=== PATIENT | male | born 1985 | race Asian ===

== ENCOUNTER 2020-11-03 06:34 | Emergency (ER) | payer OTHER ==
[2020-11-03 06:44] VITALS: BMI 23.6
[2020-11-03] MEDS ORDERED: ONDANSETRON 4 MG/2 ML VIAL IVPUSH ONE (06:53)
[2020-11-03] MEDS ORDERED: ONDANSETRON 4 MG/2 ML VIAL ONE (06:54)
[2020-11-03] MEDS ORDERED: SODIUM CHLORIDE 1,000 ML IV STA (07:26)
[2020-11-03] MEDS ORDERED: ACETAMINOPHEN 1000 MG/100 ML VIAL (NON FORMULARY) IVPB ONE (07:26)
[2020-11-03] MEDS ORDERED: ACETAMINOPHEN INJECTION 100 ML IVPB ONE (07:30)
[2020-11-03 07:47] LABS: BASO % 0.6 % (0-2.0); EOS % 3.3 % (0-4.5); HEMATOCRIT 47.1 % (35.4-49); HEMOGLOBIN 15.1 GM/dL (11.7-16.9); LYMPH % 44.1 % (8-40); MCH 27.5 pg (25.7-33.7); MCHC 32.1 g/dl (32.0-35.9); MEAN CELL VOLUME 85.6 fl (80-96); MEAN PLT VOLUME 10.5 fl (7.5-11.1); MONO % 7.8 % (3.8-10.2); NEUT % 44.2 % (42.8-82.8); PLATELET COUNT 228 K/MM3 (134-434); RDW 13.4 % (11.9-15.9); WHITE BLOOD COUNT 7.1 K/mm3 (4.0-10.0)
[2020-11-03 07:50] LABS: POTASSIUM 4.1 mmol/L (3.5-5.1)
[2020-11-03 07:53] LABS: ALBUMIN 4.2 g/dl (3.4-5.0); BLOOD UREA NITROGEN 17.8 mg/dL (7-18)
[2020-11-03 07:56] LABS: CREATININE 1.2 mg/dL (0.55-1.3)
[2020-11-03 07:58] LABS: BILIRUBIN,TOTAL 0.8 mg/dL (0.2-1); TOT PROT 7.5 g/dl (6.4-8.2)
[2020-11-03 09:41] LABS: EPI CELLS 7 /uL (0-25.1); HYALINE CASTS 0 /uL (0-3.1); PH,URINE 7.5 (5.0-8.0); URINE APPEARANCE CLEAR; URINE BACTERIA 24 /uL (0-1359); URINE BILIRUBIN NEGATIVE (NEGATIVE); URINE COLOR YELLOW; URINE GLUCOSE (UA) NEGATIVE (NEGATIVE); URINE KETONE NEGATIVE (NEGATIVE); URINE LEUK ESTERASE NEGATIVE (NEGATIVE); URINE NITRITE NEGATIVE (NEGATIVE); URINE PROTEIN NEGATIVE (NEGATIVE); URINE RBC 50 /uL (0-23.9); URINE WBC 2 /uL (0-25.8)
[2020-11-03 10:36] VITALS: BP 118/65; PULSE 78; TEMP 98.3
== END 2020-11-03 10:36 | disposition home or self-care (01) ==
LOC: JER 06:34
PROC: 3E033NZ Introduction of Analgesics, Hypnotics, Sedatives into Peripheral Vein, Percutaneous Approach (ICD-10-PCS; principal; 2020-11-03)
PROC: 3E033GC Introduction of Other Therapeutic Substance into Peripheral Vein, Percutaneous Approach (ICD-10-PCS; 2020-11-03)
PROC: 3E0337Z Introduction of Electrolytic and Water Balance Substance into Peripheral Vein, Percutaneous Approach (ICD-10-PCS; 2020-11-03)
DX: N20.0 Calculus of kidney (principal)
CPT/HCPCS: 36415; 74018-TC-FY; 76775-TC; 76856-TC; 80053; 81003; 83690; 85025; 93005; 93010; 99284-25; J0131

== ENCOUNTER 2020-11-19 04:58 | Day surgery (SDC) | payer OTHER ==
[2020-11-14 13:34] VITALS: BMI 23.6
[2020-11-19] MEDS ORDERED: PROPOFOL 20 ML ONE ×2 (10:49)
[2020-11-19] MEDS ORDERED: LIDOCAINE HCL/PF 2% SDV 5ML VIAL ONE (10:49)
[2020-11-19] MEDS ORDERED: SUCCINYLCHOLINE CHLORIDE 200 MG/10 ML SYRINGE ONE (10:49)
[2020-11-19] MEDS ORDERED: ceFAZolin SODIUM 1 GM VIAL ONE (10:49)
[2020-11-19] MEDS ORDERED: fentaNYL CITRATE 250 MCG/5 ML VIAL ONE (10:49)
[2020-11-19] MEDS ORDERED: DEXAMETHASONE SOD PHOSPHATE 4 MG/1 ML VIAL ONE (10:49)
[2020-11-19] MEDS ORDERED: MIDAZOLAM HCL 2 MG/2 ML SINGLE DOSE VIAL ONE (10:50)
[2020-11-19] MEDS ORDERED: ONDANSETRON 4 MG/2 ML VIAL IVPUSH PRN (12:25)
[2020-11-19] MEDS ORDERED: oxyCODONE HCL 5 MG TABLET PO PRN ×2 (12:25)
[2020-11-19] MEDS ORDERED: LACTATED RINGERS SOLUTION 1,000 ML IV SCH (12:30)
[2020-11-19 13:56] VITALS: TEMP 97.8
[2020-11-19] MEDS ORDERED: ACETAMINOPHEN 325 MG TABLET (FP) ONE (14:19)
[2020-11-19] MEDS ORDERED: ACETAMINOPHEN 325 MG TABLET (FP) PO ONE (14:20)
[2020-11-19 16:02] VITALS: BP 119/71; PULSE 82
== END 2020-11-19 16:00 | disposition home or self-care (01) ==
LOC: JASU-SURG 04:58
PROVIDERS: ATTEND Urology
PROC: 0T9780Z Drainage of Left Ureter with Drainage Device, Via Natural or Artificial Opening Endoscopic (ICD-10-PCS; principal; 2020-11-19 15:30)
PROC: 0T778DZ Dilation of Left Ureter with Intraluminal Device, Via Natural or Artificial Opening Endoscopic (ICD-10-PCS; 2020-11-19 15:30)
DX: N13.2 Hydronephrosis with renal and ureteral calculous obstruction (principal)
CPT/HCPCS: 76000-TC-FY; 87086; 94760

== ENCOUNTER 2021-01-14 04:23 | Day surgery (SDC) | payer OTHER ==
[2021-01-09 14:57] VITALS: BMI 22.1
[2021-01-14] MEDS ORDERED: MIDAZOLAM HCL 2 MG/2 ML SINGLE DOSE VIAL ONE ×2 (14:32→14:55)
[2021-01-14] MEDS ORDERED: PROPOFOL 20 ML ONE (14:51)
[2021-01-14 16:47] VITALS: BP 123/80; PULSE 84; TEMP 98.2
== END 2021-01-14 16:25 | disposition home or self-care (01) ==
LOC: JASU-SURG 04:23
PROVIDERS: ATTEND Urology
PROC: 0TF4XZZ Fragmentation in Left Kidney Pelvis, External Approach (ICD-10-PCS; principal; 2021-01-14 12:30)
DX: N20.0 Calculus of kidney (principal)

== ENCOUNTER 2021-06-03 04:50 | Day surgery (SDC) | payer OTHER ==
[2021-06-03 13:30] VITALS: BMI 23.6
[2021-06-03] MEDS ORDERED: MIDAZOLAM HCL 2 MG/2 ML SINGLE DOSE VIAL ONE (15:17)
[2021-06-03] MEDS ORDERED: KETOROLAC TROMETHAMINE 30 MG/1 ML VIAL ONE (15:34)
[2021-06-03 16:31] VITALS: PULSE 60
[2021-06-03 17:52] VITALS: BP 103/56; TEMP 97.8
== END 2021-06-03 17:20 | disposition home or self-care (01) ==
LOC: JASU-SURG 04:50
PROVIDERS: ATTEND Urology
PROC: 0TF3XZZ Fragmentation in Right Kidney Pelvis, External Approach (ICD-10-PCS; principal; 2021-06-03 15:00)
DX: N20.0 Calculus of kidney (principal)
CPT/HCPCS: C9803; U0003; U0005

== ENCOUNTER 2022-08-25 04:31 | Day surgery (SDC) | payer OTHER ==
[2022-08-21 17:49] VITALS: BMI 23.6
[2022-08-25] MEDS ORDERED: ONDANSETRON 4 MG/2 ML VIAL ONE (16:53)
[2022-08-25] MEDS ORDERED: KETOROLAC TROMETHAMINE 30 MG/1 ML VIAL ONE (16:53)
[2022-08-25] MEDS ORDERED: MIDAZOLAM HCL 2 MG/2 ML SINGLE DOSE VIAL ONE (17:04)
[2022-08-25 18:41] VITALS: BP 115/70; PULSE 65; RESP 18; TEMP 97.8
== END 2022-08-25 18:25 | disposition home or self-care (01) ==
LOC: JASU-SURG 04:31
PROVIDERS: ATTEND Urology
PROC: 0TF3XZZ Fragmentation in Right Kidney Pelvis, External Approach (ICD-10-PCS; principal; 2022-08-25 16:30)
DX: N20.0 Calculus of kidney (principal)

== ENCOUNTER 2022-11-04 16:51 | Emergency (ER) | payer OTHER ==
[2022-11-04 17:12] VITALS: BP 139/96; PULSE 81; RESP 18; TEMP 97.4; BMI 23.6
== END 2022-11-04 22:36 | disposition left against medical advice (07) ==
LOC: JER 16:51 → JERFT 16:51
DX: R10.9 Unspecified abdominal pain (principal)
CPT/HCPCS: 93005; 93010; 99283-25

== ENCOUNTER 2023-01-26 04:19 | Day surgery (SDC) | payer OTHER ==
[2023-01-21 14:41] VITALS: BMI 25.1
[2023-01-26] MEDS ORDERED: MIDAZOLAM HCL 2 MG/2 ML SINGLE DOSE VIAL ONE ×2 (17:10→17:22)
[2023-01-26] MEDS ORDERED: DEXAMETHASONE SOD PHOSPHATE 4 MG/1 ML VIAL ONE (17:17)
[2023-01-26] MEDS ORDERED: ONDANSETRON 4 MG/2 ML VIAL ONE (17:17)
[2023-01-26 17:56] VITALS: BP 111/62; PULSE 64; RESP 20; TEMP 97.1
== END 2023-01-26 19:27 | disposition home or self-care (01) ==
LOC: JASU-SURG 04:19
PROVIDERS: ATTEND Urology
PROC: 0TF4XZZ Fragmentation in Left Kidney Pelvis, External Approach (ICD-10-PCS; principal; 2023-01-26 14:30)
DX: N20.0 Calculus of kidney (principal)

== ENCOUNTER 2023-06-15 05:24 | Day surgery (SDC) | payer OTHER ==
[2023-06-10 10:11] VITALS: BMI 25.1
[2023-06-15 12:55] VITALS: RESP 20
[2023-06-15] MEDS ORDERED: MIDAZOLAM HCL 2 MG/2 ML SINGLE DOSE VIAL ONE (14:52)
[2023-06-15 16:16] VITALS: BP 112/72; PULSE 56; TEMP 97.7
== END 2023-06-15 16:30 | disposition home or self-care (01) ==
LOC: JASU-SURG 05:24
PROVIDERS: ATTEND Urology
PROC: 0TF3XZZ Fragmentation in Right Kidney Pelvis, External Approach (ICD-10-PCS; principal; 2023-06-15 13:30)
DX: N20.0 Calculus of kidney (principal)